=== PATIENT | female | born 1970 | race Two or more races ===

== ENCOUNTER 2017-04-27 13:39 | Outpatient (CLI) | payer OTHER | END 2017-04-27 13:48 | disposition home or self-care (01) | LOC: RAD 13:39 | DX: I10 Essential (primary) hypertension (principal) ==

== ENCOUNTER 2017-05-06 10:50 | Outpatient (CLI) | payer OTHER | END 2017-05-06 10:52 | disposition home or self-care (01) | LOC: NUCLEAR 10:50 | DX: I25.111 Atherosclerotic heart disease of native coronary artery with angina pectoris with documented spasm (principal) ==

== ENCOUNTER → 2018-03-22 | Emergency (ER) | payer OTHER | END | disposition left against medical advice (07) | LOC: ER 16:22 | DX: Z53.20 Procedure and treatment not carried out because of patient's decision for unspecified reasons (principal) ==

== ENCOUNTER 2024-05-11 22:21 | Emergency (ER) | payer OTHER ==
[~2024-05-11] VITALS: Ht 165.1 cm; Wt 81.6 kg
[2024-05-11 22:46] VITALS: BP 129/81; O2SAT 100
[2024-05-11] MEDS ORDERED: LOSARTAN POTAS100 MG PO (22:47)
[2024-05-12] MEDS ORDERED: ORPHENADRINE CITRATE 30 MG/ML AMPUL IM STA (01:09)
[2024-05-12] MEDS ORDERED: KETOROLAC TROMETHAMINE 60 MG VIAL IM STA (01:09)
[2024-05-12] MEDS ORDERED: DEXAMETHASONE SODIUM PHOSPHATE 4 MG/ML VIAL IM STA (01:10)
[2024-05-12] MEDS ORDERED: ORPHENADRINE CITRATE 30 MG/ML AMPUL ONE (01:12)
[2024-05-12] MEDS ORDERED: DEXAMETHASONE SODIUM PHOSPHATE 4 MG/ML VIAL ONE (01:13)
[2024-05-12] MEDS ORDERED: KETOROLAC TROMETHAMINE 60 MG VIAL IM ONE (01:13)
== END 2024-05-12 02:01 | disposition home or self-care (01) ==
LOC: ER 22:21
DX: G24.3 Spasmodic torticollis (principal); M62.830 Muscle spasm of back